=== PATIENT | male | born 1950 | race Caucasian/White ===

== ENCOUNTER 2019-07-17 10:42 | Emergency (ER) | payer MEDICARE, OTHER ==
[~2019-07-17] VITALS: Ht 185.4 cm; Wt 104.5 kg
[2019-07-17 10:48] VITALS: Ht 185.4 cm; Wt 104.5 kg
[2019-07-17] MEDS ORDERED: VIBRAMYCIN 100100 MG PO (11:10)
[2019-07-17] MEDS ORDERED: VOLTAREN75 MG PO (11:10)
[2019-07-17 11:47] VITALS: BP 136/82
== END 2019-07-17 11:48 | disposition home or self-care (01) ==
LOC: D.ER 10:42
DX: L03.317 Cellulitis of buttock (principal); F32.9 Major depressive disorder, single episode, unspecified; I10 Essential (primary) hypertension; I48.91 Unspecified atrial fibrillation

== ENCOUNTER 2019-07-20 15:55 | Emergency (ER) | payer MEDICARE, OTHER ==
[~2019-07-20] VITALS: Ht 185.4 cm; Wt 105.9 kg
[~2019-07-20 15:55] MED LIST: VIBRAMYCIN 100100 MG PO; VOLTAREN75 MG PO
[2019-07-20 16:23] VITALS: Ht 185.4 cm; Wt 105.9 kg
[2019-07-20] MEDS ORDERED: BAYER CHEWABLE81 MG PO (16:33)
[2019-07-20] MEDS ORDERED: ELIQUIS5 MG PO (16:33)
[2019-07-20 16:51] LABS: BASOPHILS 0.4 % (0-2); EOSINOPHILS 3.8 % (0-7); HEMOGLOBIN 10.2 g/dL (13.5-17.5); IMMATURE GRANULOCYTES 0.1 % (0-5); LYMPHOCYTES 18.8 % (15-50); MCH 25.1 pg (26.0-34.0); MCV 83.7 fL (80.0-100.0); MEAN PLATELET VOLUME 8.9 fL (7.4-10.4); MONOCYTES 15.5 % (2-11); NEUTROPHILS 61.4 % (40-80); PLATELET COUNT 207 10x3/uL (130-400); RBC 4.06 10x6/uL (4.20-6.10); RDW 19.8 % (11.5-14.5); WBC 6.9 10x3/uL (4.8-10.8)
[2019-07-20 17:02] LABS: APTT 34.2 SECONDS (22.8-39.4); INR 1.3 (0.85-1.17); PROTIME 15.6 SECONDS (11.6-15.0)
[2019-07-20 19:32] VITALS: BP 107/72
== END 2019-07-20 19:34 | disposition home or self-care (01) ==
LOC: D.ER 15:55
PROVIDERS: Family Medicine
DX: L03.317 Cellulitis of buttock (principal)

== ENCOUNTER 2019-07-23 09:19 | Emergency (ER) | payer MEDICARE, OTHER ==
[~2019-07-23] VITALS: Ht 185.4 cm; Wt 105.9 kg
[~2019-07-23 09:19] MED LIST changes: +BAYER CHEWABLE81 MG PO; +ELIQUIS5 MG PO
[2019-07-23 09:28] VITALS: Ht 185.4 cm; Wt 105.9 kg
[2019-07-23 09:55] LABS: BASOPHILS 0.3 % (0-2); EOSINOPHILS 3.5 % (0-7); HEMOGLOBIN 8.9 g/dL (13.5-17.5); IMMATURE GRANULOCYTES 0.3 % (0-5); LYMPHOCYTES 14.5 % (15-50); MCH 24.9 pg (26.0-34.0); MCHC 29.7 g/dL (31.0-37.0); MONOCYTES 14.2 % (2-11); NEUTROPHILS 67.2 % (40-80); PLATELET COUNT 167 10x3/uL (130-400); RBC 3.57 10x6/uL (4.20-6.10); RDW 20.3 % (11.5-14.5); WBC 6.6 10x3/uL (4.8-10.8)
[2019-07-23 10:08] LABS: INR 1.27 (0.85-1.17); PROTIME 15.3 SECONDS (11.6-15.0)
[2019-07-23 10:09] LABS: APTT 44.3 SECONDS (22.8-39.4)
[2019-07-23 10:14] LABS: ALBUMIN 3.4 g/dL (3.4-5.0); ALKALINE PHOSPHATASE 78 U/L (46-116); ALT (SGPT) 22 U/L (10-68); BILIRUBIN - TOTAL 0.97 mg/dL (0.2-1.3); CALC OSMOLALITY 279 mosm/kg (275-300); CALCIUM 8.2 mg/dL (8.5-10.1); CARBON DIOXIDE 27.8 mmol/L (21.0-32.0); CHLORIDE - SERUM 105 mmol/L (98-107); CREATININE - SERUM 1.2 mg/dL (0.6-1.3); GLUCOSE 111 mg/dL (74-106); POTASSIUM - SERUM 4.8 mmol/L (3.5-5.1); PROTEIN - SERUM 6.8 g/dL (6.4-8.2); SODIUM 139 mmol/L (136-145); UREA NITROGEN 15 mg/dL (7-18); eGFR NON AFRICAN AMERICAN 64 mL/min (90-120)
[2019-07-23 10:25] LABS: CKMB 1.3 U/L (0.0-3.6); CREATINE KINASE 182 UL (21-232); MAGNESIUM - SERUM 1.9 mg/dL (1.8-2.4); TROPONIN-I < 0.017 ng/mL (0.000-0.060)
[2019-07-23 14:34] VITALS: BP 127/73
== END 2019-07-23 14:34 | disposition home or self-care (01) ==
LOC: D.ER 09:19
PROVIDERS: Family Medicine
DX: I95.0 Idiopathic hypotension (principal); R55 Syncope and collapse; I48.91 Unspecified atrial fibrillation; I10 Essential (primary) hypertension; S70.02XA Contusion of left hip, initial encounter; W19.XXXA Unspecified fall, initial encounter